=== PATIENT | female | born 2000 | race Caucasian/White ===

== ENCOUNTER 2023-04-24 07:42 | Observation (INO) ==
--- NOTE | 2023-04-24 08:25 | DR.NAUSEAF ---
HPI Time Seen Time Seen by Provider: 04/24/23 08:10 Primary Care Physician Primary Care Physician: Liane Complaints Chief Complaint Doctors Comments: Patient had a lap cholecystectomy 04/19/23 and has been having nausea and vomiting.She awoke today with chest pain,epigastric pain and nausea,vomiting. Patient denies: fever,weakness,hematemesis,sob,back pain. Chief Complaint:: Patient states that she had her gallbladder removed last Monday. She states that this morning she woke up with substernal chest pain and nausea. She has brought her child in to the ER due to him being sick, and just threw up in the trash can and has asked to be seen. COVID-19 Coronavirus risk:travel/contact w/high risk person: No Has patient experienced Coronavirus symptoms: No Source History Provided: Patient Mode of Arrival Mode of Arrival: Ambulatory Timing Onset of Chief Complaint: 04/24/23 PMH PMH Past Medical History: Yes Past Medical History: GERD and Kidney Stones Past Surgical History: Yes Surgical History: and Cholecystectomy Family History History of Family Medical Conditions: Yes Family Medical History: Diabetes Mellitus, Cancer, MA and Hypertension Social History Does patient currently use any type of tobacco product: No Have you used tobacco products in the last 12 months: No Type of Tobacco Use: None Does any household member use tobacco: No Alcohol Use: None Do you use any recreational Drugs:: No Lives With: Family Lives Where: Home Travel Risk Coronavirus risk:travel/contact w/high risk person: No Has patient experienced Coronavirus symptoms: No Infectious screening In the last 2 months have you had wt loss of >10#?: NO Have you had fever, night sweats or hemotysis?: No Have you traveled outside the country in the last 6 months?: No Isolation: Standard ROS Review of Systems Constitutional: No Symptoms Reported Eyes: No Symptoms Reported ENTM: No Symptoms Reported Respiratoy: No Symptoms Reported Cardiovascular: No Symptoms Reported and Chest Pain (retrosternal) Gastrointestinal/Abdominal: No Symptoms Reported, Abdominal Pain (epigastric), Nausea and Vomiting Genitourinary: No Symptoms Reported Neurological: No Symptoms Reported Musculoskeletal: No Symptoms Reported Integumentary: No Symptoms Reported Hematologic/Lymphatic: No Symptoms Reported Endocrine: No Symptoms Reported Psychiatric: No Symptoms Reported All Other Systems: Reviewed and Negative PE Vital Signs Vitals: Vital Signs Temperature 99.1 F Pulse Rate 91 Respiratory Rate 18 Blood Pressure 124/77 O2 Sat by Pulse Oximetry 97 General Limitations: No Limitations General Appearance: Alert and In No Apparent Distress Head Head Exam: Normal Inspection Eyes Eye exam: Normal Appearance ENT ENT Exam: Normal Exam Neck Neck Exam: Normal Inspection Chest Chest Inspection: Normal Inspection Respiratory Respiratory Exam: Normal Lung Sounds Bilat Respiratory Exam: Bilateral: Clear to Auscultation Cardiovascular Cardiovascular Exam: Regular Rate and Normal Rhythm Abdominal Exam Abdominal Exam: Normal Inspection, Soft, Tenderness and Hypoactive Bowel Sounds Abdominal Tenderness: Epigastrium Rectal Rectal Exam: Deferred External Exam: Female: Deferred : Speculum Exam (Female): Deferred : Bimanual Exam (female): Deferred Extremities Extremities Exam: Normal Inspection Back Back Exam: Normal Inspection Neurologic Neurological Exam: Alert and Oriented X3 Psychiatric Psychiatric Exam: Normal Affect and Normal Mood Skin Skin Exam: Warm, Dry, Intact and Normal Color MDM Differential Diagnosis Differential Diagnosis: Considerations may Include:: Bowel Obstruction Differential Diagnosis Comment: bowel perforation,inflammation,ischemia,abscess COURSE Treatment Treatment: Patient had a laparoscopic cholecystectomy on 04/19/2023. She has been having nausea and vomiting and today awoke with epigastric pain radiating into her chest. Patient has a white count of 11.[address] CT with contrast revealed multifocal small areas of emphysema and increased density in the gallbladder fossa suspicious for an inflammatory process consistent with a phlegmon. Discussed case with her surgeon Dr. Goss. Dr. Soliz also that he would like to admit the patient observation to [facility]. He would like her to get Zosyn 3.375 IV fluid therapy. Patient has been stable in the ED. ROR Labs Reviewed Laboratory Results Reviewed?: Yes 04/24/23 09:54 04/24/23 09:54 Laboratory: WBC 11.2 X10^3/uL (3.6-10.0) H 04/24/23 09:54 RBC 5.27 X10^6/uL (3.5-5.4) 04/24/23 09:54 Hgb 13.7 g/dL (12.0-16.0) 04/24/23 09:54 Hct 41.8 % (36.0-47.0) 04/24/23 09:54 MCV 79.4 fL (80.0-100.0) L 04/24/23 09:54 MCH 26.0 pg (27.0-34.0) L 04/24/23 09:54 MCHC 32.8 g/dL (33.0-35.0) L 04/24/23 09:54 RDW 14.5 % (11.6-16.5) 04/24/23 09:54 Plt Count 389 X10^3/uL (150.0-450.0) 04/24/23 09:54 MPV 7.6 fL (7.4-11.0) 04/24/23 09:54 Neut % (Auto) 82.0 % (42.0-75.0) H 04/24/23 09:54 Lymph % (Auto) 12.2 % (21.0-51.0) L 04/24/23 09:54 [place] % (Auto) 4.9 % (0.0-13.0) 04/24/23 09:54 Eos % (Auto) 0.4 % (0.9-2.9) L 04/24/23 09:54 Baso % (Auto) 0.5 % (0.2-1.0) 04/24/23 09:54 Neut # (Auto) 9.2 x10^3/uL (2.2-4.8) H 04/24/23 09:54 Lymph # (Auto) 1.4 X10^3/uL (1.3-2.9) 04/24/23 09:54 [place] # (Auto) 0.5 x10^3/uL (0.3-0.8) 04/24/23 09:54 Eos # (Auto) 0.0 x10^3/uL (0.0-0.2) 04/24/23 09:54 Baso # (Auto) 0.1 X10^3/uL (0.0-0.1) 04/24/23 09:54 Absolute Nucleated RBC 0.1 /100WBC 04/24/23 09:54 Sodium 137 mmol/L (136-145) 04/24/23 09:54 Corrected Sodium TNP 04/24/23 09:54 Potassium 4.1 mmol/L (3.5-5.1) 04/24/23 09:54 Chloride 102 mmol/L (98-107) 04/24/23 09:54 Carbon Dioxide 26.8 mmol/L (21-32) 04/24/23 09:54 BUN 10 mg/dL (7-18) 04/24/23 09:54 Creatinine 0.77 mg/dL (0.55-1.02) 04/24/23 09:54 Est GFR (MDRD) Af Amer > 60 (>60) 04/24/23 09:54 Est GFR (MDRD) Non-Af > 60 (>60) 04/24/23 09:54 Glucose 87 mg/dL (65-99) 04/24/23 09:54 Calcium 9.3 mg/dL (8.5-10.1) 04/24/23 09:54 Corrected Calcium TNP 04/24/23 09:54 Total Bilirubin 0.40 mg/dL (0.2-1.0) 04/24/23 09:54 AST 33 Units/L (15-37) 04/24/23 09:54 ALT 107 Units/L (12-78) H 04/24/23 09:54 Alkaline Phosphatase 154 Units/L (46-116) H 04/24/23 09:54 Total Protein 7.8 g/dL (6.4-8.2) 04/24/23 09:54 Albumin 3.5 g/dL (3.4-5.0) 04/24/23 09:54 Globulin 4.3 g/dL (2.5-4.5) 04/24/23 09:54 Albumin/Globulin Ratio 0.8 Ratio (1.1-2.1) L 04/24/23 09:54 Amylase 43 Units/L (25-115) 04/24/23 09:54 Lipase 24 Units/L (16-77) 04/24/23 09:54 SARS-CoV-2 (PCR) Negative (NEGATIVE) 04/24/23 08:02 Influenza Type A (PCR) Negative (NEGATIVE) 04/24/23 08:02 Influenza Type B (PCR) Negative (NEGATIVE) 04/24/23 08:02 RSV (PCR) Negative (NEGATIVE) 04/24/23 08:02 XRAY XRAY Interpreted by: Radiologist X-ray Results: EXAM: ABDCMEN/PELVIS WITH CON HISTORY: Patient states that she had her gallbladder removed last Monday04/19/23. She states that this morning she woke up with substernal chest pain and nausea.; CSECTION, GB COMPARISON: None TECHNIQUE: Multiple CT axial images of the abdomen and pelvis were obtained with IV contrast. Coronal and sagittal images were reconstructed. Dose reduction techniques included Automated Exposure Control (AEC) and adjustment of mA and kV. FINDINGS: There are multifocal small areas of emphysema and increased density in the ga llbladder fossa suspicious for an inflammatory process. No well-defined fluid collection to suggest an abscess but this could be a phlegmon. No pneumoperitoneum. There is small volume free fluid in the pelvis. Very slight postsurgical changes in the abdominal wall. The lung bases are clear. Heart size is normal. The liver is normal in size and configuration. The spleen is normal in size and shape. The adrenal glands are normal. The pancreas is normal. Stone mid right kidney measures 4 mm. Water density mass in the right kidney is a cyst measuring about 5 cm. Renal enhancement is uniform and symmetric with no solid mass. There is no hydronephrosis or significant perirenal edema. The ureters are not dilated. The bladder is normally distended. It has no wall thickening or perivesical edema. The bowel is not dilated. There is no wall thickening in the bowel or edema around the bowel. The appendix is normal in size with no inflammation around it. No evidence of appendicitis. There is no significant bone abnormality. IMPRESSION: 1. Possible inflammatory changes in the gallbladder fossa 2. Nonobstructing right renal calculus THIS IS AN ELECTRONICALLY VERIFIED FINAL REPORT 04/24/2023 11:50 AM - Electronically signed by Moris Galeas MD Opioid Opioid Risk Tool Age (Rudi box if 16-45): Yes History of Preadolescent Sexual Abuse: No Total: 1 Total Score Risk Category: Low Risk Copyright: [employer] predicting aberrant behaviors Discharge Plan Diagnosis Discharge Problem: Abdominal pain, Inflammation, History of laparoscopic cholecystectomy Discharge Plan Patient Disposition: ADMITTED INPATIENT Condition: Stable Prescriptions: No Action Low-Ogestrel (28) 0.3-30 mg-mcg tablet 1 tab PO QDAY Health Concerns: Post Hospitalization: new medications and changes needed to prevent readmission or further decline. Pt educated and given instructions on all concerns. Plan of Treatment: Continue with present treatment and follow up plan. Pt is to keep follow up appointment as instructed and take medications as ordered. Orders to Discharge Patient Discharge Orders: Transfer (Routine); Ordered 04/24/23 Ordered By: Candi Avilez Follow ups/Referrals Follow ups/Referrals: ASHWIN COVINGTON [Primary Care Provider] - 3 days Instructions Stand Alone Forms: Post Hospital Follow Up Care
[2023-04-24] MEDS ORDERED: NS 1,000 ML IV 1,000 ML IV ONE (09:32)
[2023-04-24] MEDS ORDERED: ZOFRAN INJ 4 MG VIAL IVP ONE (09:32)
[2023-04-24] MEDS ORDERED: NS 1,000 ML IV 1,000 ML ONE (09:36)
[2023-04-24] MEDS ORDERED: ZOFRAN INJ 4 MG VIAL ONE (09:36)
[2023-04-24 10:00] LABS: EOSINOPHILS % (AUTO) 0.4 % (0.9-2.9); HEMOGLOBIN 13.7 g/dL (12.0-16.0); MEAN CORPUSCULAR VOLUME 79.4 fL (80.0-100.0)
[2023-04-24 10:07] LABS: BASOPHILS # (AUTO) 0.1 X10^3/uL (0.0-0.1); BASOPHILS % (AUTO) 0.5 % (0.2-1.0); HEMATOCRIT 41.8 % (36.0-47.0); LYMPHOCYTES # (AUTO) 1.4 X10^3/uL (1.3-2.9); LYMPHOCYTES % (AUTO) 12.2 % (21.0-51.0); MEAN CORPUSCULAR HGB CONC 32.8 g/dL (33.0-35.0); MEAN PLATELET VOLUME 7.6 fL (7.4-11.0); MONOCYTES # (AUTO) 0.5 x10^3/uL (0.3-0.8); MONOCYTES % (AUTO) 4.9 % (0.0-13.0); NEUTROPHILS # (AUTO) 9.2 x10^3/uL (2.2-4.8); PLATELET COUNT 389 X10^3/uL (150.0-450.0); RED BLOOD COUNT 5.27 X10^6/uL (3.5-5.4); RED CELL DISTRIBUTION WIDTH 14.5 % (11.6-16.5); WHITE BLOOD COUNT 11.2 X10^3/uL (3.6-10.0)
[2023-04-24 10:13] LABS: ALANINE AMINOTRANSFERASE 107 Units/L (12-78); ALBUMIN 3.5 g/dL (3.4-5.0); ALKALINE PHOSPHATASE 154 Units/L (46-116); AMYLASE 43 Units/L (25-115); ASPARTATE AMINO TRANSFERASE 33 Units/L (15-37); BLOOD UREA NITROGEN 10 mg/dL (7-18); CALCIUM 9.3 mg/dL (8.5-10.1); CARBON DIOXIDE 26.8 mmol/L (21-32); CHLORIDE 102 mmol/L (98-107); CREATININE 0.77 mg/dL (0.55-1.02); GLUCOSE 87 mg/dL (65-99); LIPASE 24 Units/L (16-77); POTASSIUM 4.1 mmol/L (3.5-5.1); SODIUM 137 mmol/L (136-145); TOTAL PROTEIN 7.8 g/dL (6.4-8.2); eGFR NON BLACK RACES > 60 (>60)
[2023-04-24] MEDS ORDERED: OMNIPAQUE 350 mg/mL 100 mL BTL 100 ML ONE (10:41)
--- NOTE | 2023-04-24 11:54 | CT ---
EXAM:ABDCMEN/PELVIS WITH CONHISTORY:Patient states that she had her gallbladder removed last Monday04/19/23. She states that this morning she woke up with substernal chest pain and nausea.; CSECTION, GBCOMPARISON:NoneTECHNIQUE:Multiple CT axial images of the abdomen and pelvis were obtained with IV contrast. Coronal and sagittal images were reconstructed. Dose reduction techniques included Automated Exposure Control (AEC) and adjustment of mA and kV.FINDINGS:There are multifocal small areas of emphysema and increased density in the gallbladder fossa suspicious for an inflammatory process. No well-defined fluid collection to suggest an abscess but this could be a phlegmon.No pneumoperitoneum. There is small volume free fluid in the pelvis. Very slight postsurgical changes in the abdominal wall.The lung bases are clear. Heart size is normal.The liver is normal in size and configuration. The spleen is normal in size and shape. The adrenal glands are normal. The pancreas is normal.Stone mid right kidney measures 4 mm. Water density mass in the right kidney is a cyst measuring about 5 cm.Renal enhancement is uniform and symmetric with no solid mass. There is no hydronephrosis or significant perirenal edema. The ureters are not dilated. The bladder is normally distended. It has no wall thickening or perivesical edema.The bowel is not dilated. There is no wall thickening in the bowel or edema around the bowel. The appendix is normal in size with no inflammation around it. No evidence of appendicitis.There is no significant bone abnormality.IMPRESSION:1. Possible inflammatory changes in the gallbladder fossa2. Nonobstructing right renal calculusTHIS IS AN ELECTRONICALLY VERIFIED FINAL REPORT04/24/2023 11:50 AM - Electronically signed by Moris Galeas MD
[2023-04-24] MEDS: NS 1,000 ML IV 1,000 ML IV SCH (13:06)
[2023-04-24] MEDS ORDERED: NS 1,000 ML IV 1,000 ML IV SCH (13:43)
[2023-04-24 14:17] VITALS: BMI 38.6
[2023-04-24] MEDS: ZOSYN VIAL 3.375 GRAMS 3.375 G in NS 100 ML IV 100 ML IV SCH ×2 (14:49→22:12)
[2023-04-25] MEDS ORDERED: AMBIEN PO PRN (01:02)
[2023-04-25] MEDS: NS 1,000 ML IV 1,000 ML IV SCH ×2 (02:08→04:00)
[2023-04-25 05:07] VITALS: BP 110/69; PULSE 95; RESP 20; TEMP 98.4; O2SAT 97
[2023-04-25 05:57] LABS: ALANINE AMINOTRANSFERASE 91 Units/L (12-78); ALBUMIN 2.8 g/dL (3.4-5.0); ALKALINE PHOSPHATASE 114 Units/L (46-116); ASPARTATE AMINO TRANSFERASE 29 Units/L (15-37); BLOOD UREA NITROGEN 9 mg/dL (7-18); CALCIUM 8.6 mg/dL (8.5-10.1); CARBON DIOXIDE 26.9 mmol/L (21-32); CHLORIDE 105 mmol/L (98-107); COR CA(FOR HYPOALB) 9.6 mg/dL (8.5-10.1); CREATININE 0.72 mg/dL (0.55-1.02); GLUCOSE 88 mg/dL (65-99); POTASSIUM 3.6 mmol/L (3.5-5.1); SODIUM 138 mmol/L (136-145); TOTAL PROTEIN 6.3 g/dL (6.4-8.2); eGFR NON BLACK RACES > 60 (>60)
[2023-04-25 06:11] LABS: BASOPHILS % (AUTO) 0.5 % (0.2-1.0); EOSINOPHILS # (AUTO) 0.1 x10^3/uL (0.0-0.2); EOSINOPHILS % (AUTO) 1.4 % (0.9-2.9); HEMATOCRIT 35.4 % (36.0-47.0); HEMOGLOBIN 11.7 g/dL (12.0-16.0); LYMPHOCYTES # (AUTO) 2.1 X10^3/uL (1.3-2.9); LYMPHOCYTES % (AUTO) 28.3 % (21.0-51.0); MEAN CORPUSCULAR HEMOGLOBIN 26.2 pg (27.0-34.0); MEAN CORPUSCULAR HGB CONC 33.1 g/dL (33.0-35.0); MEAN CORPUSCULAR VOLUME 79.3 fL (80.0-100.0); MEAN PLATELET VOLUME 7.8 fL (7.4-11.0); MONOCYTES # (AUTO) 0.6 x10^3/uL (0.3-0.8); MONOCYTES % (AUTO) 7.7 % (0.0-13.0); NEUTROPHILS # (AUTO) 4.7 x10^3/uL (2.2-4.8); NEUTROPHILS % (AUTO) 62.1 % (42.0-75.0); PLATELET COUNT 314 X10^3/uL (150.0-450.0); RED BLOOD COUNT 4.46 X10^6/uL (3.5-5.4); WHITE BLOOD COUNT 7.5 X10^3/uL (3.6-10.0)
[2023-04-25] MEDS: ZOSYN VIAL 3.375 GRAMS 3.375 G in NS 100 ML IV 100 ML IV SCH (06:33)
[2023-04-25] MEDS ORDERED: CONSULT PHARMACY - POTASSIUM & MAGNESIUM XX SCH (07:00)
[2023-04-25] MEDS ORDERED: NORGESTREL ETHINYL ESTRADIOL PO SCH (09:00)
[2023-04-25] MEDS ORDERED: K-DUR TAB 20 MEQ PO SCH (09:00)
== END 2023-04-25 11:45 | disposition home or self-care (01) ==
LOC: ER 07:42 → MED/SURG 07:42
PROVIDERS: ADMIT Surgery; ATTEND Surgery